=== PATIENT | female | born 1950 | race Caucasian/White ===

== ENCOUNTER 2019-12-01 14:33 | Emergency (ER) | payer OTHER ==
[2019-12-01] MEDS ORDERED: ACETAMINOPHEN-CODEINE 300/30MG TAB ONE (15:47)
[2019-12-01] MEDS ORDERED: ONDANSETRON HCL 4 MG/2 ML VIAL ONE (15:48)
== END 2019-12-01 17:27 | disposition home or self-care (01) ==
LOC: EDH 14:33
DX: S83.92XA Sprain of unspecified site of left knee, initial encounter (principal); M48.54XA Collapsed vertebra, not elsewhere classified, thoracic region, initial encounter for fracture; M54.5 Low back pain; E11.9 Type 2 diabetes mellitus without complications; I10 Essential (primary) hypertension; M81.0 Age-related osteoporosis without current pathological fracture; Z90.710 Acquired absence of both cervix and uterus; Z90.49 Acquired absence of other specified parts of digestive tract; Z87.891 Personal history of nicotine dependence; Z88.8 Allergy status to other drugs, medicaments and biological substances; V49.50XA Passenger injured in collision with unspecified motor vehicles in traffic accident, initial encounter; Y93.89 Activity, other specified; Y92.89 Other specified places as the place of occurrence of the external cause; Y99.8 Other external cause status
CPT/HCPCS: 72131; 73562; 96374; 99284; J2405

== ENCOUNTER → 2021-10-31 | Outpatient (CLI) | payer OTHER, MEDICARE ==
[2021-10-31 11:45] LABS: AMMONIA < 10 umol/L (11-32); CARBON DIOXIDE 30 mmol/L (21-32); CHLORIDE 107 mmol/L (101-111); CREATININE 1.1 mg/dL (0.5-1.5); GLOMERULAR FILTR. RATE CALC 52 mL/min (>60); GLUCOSE,RANDOM 106 mg/dL (70-105); POTASSIUM 5.1 mmol/L (3.5-5.1); SODIUM SERUM 146 mmol/L (136-145); UREA NITROGEN, BLOOD 12 mg/dL (7-18)
[2021-11-02 10:34] LABS: CREATININE,SERUM FOR CRCL 1.1 mg/dL (0.6-1.3)
== END | disposition home or self-care (01) ==
LOC: LAB 09:03
PROVIDERS: ATTEND Internal Medicine
DX: I12.9 Hypertensive chronic kidney disease with stage 1 through stage 4 chronic kidney disease, or unspecified chronic kidney disease (principal); N18.30 Chronic kidney disease, stage 3 unspecified; R25.1 Tremor, unspecified; R35.89 Other polyuria; E04.2 Nontoxic multinodular goiter
CPT/HCPCS: 36415; 80048; 82140; 82575

== ENCOUNTER 2023-09-02 01:35 | Emergency (ER) | payer OTHER, MEDICARE ==
[~2023-09-02] VITALS: Ht 160 cm; Wt 56.7 kg
[2023-09-02 02:38] LABS: BASOPHILS # (AUTO) 0.06 K/uL (0.00-0.20); BASOPHILS % (AUTO) 0.6 % (0.0-5.0); EOSINOPHILS # (AUTO) 0.18 K/uL (0.00-0.70); EOSINOPHILS % (AUTO) 1.9 % (0.0-8.0); HEMATOCRIT 27.8 % (36-48); IMMATURE GRANULOCYTE ABSOLUTE 0.09 K/uL (0-1); LYMPHOCYTES # (AUTO) 2.2 K/uL (1.0-4.8); LYMPHOCYTES % (AUTO) 23.3 % (21.0-51.0); MEAN CORPUSCULAR HEMOGLOBIN 30.1 pg (27.0-33.0); MEAN CORPUSCULAR HGB CONC 33.1 g/dL (32.0-36.0); MEAN CORPUSCULAR VOLUME 90.8 fL (79-99); MONOCYTES # (AUTO) 0.8 K/uL (0.1-1.0); MONOCYTES % (AUTO) 8.8 % (3.0-13.0); NEUTROPHILS # (AUTO) 6.2 K/uL (1.8-7.7); NEUTROPHILS % (AUTO) 64.5 % (40.0-77.0); NUCLEATED RED BLOOD CELLS 0.2 % (0.0-0.19); PLATELET COUNT (AUTO) 583 K/uL (130-400); RED BLOOD CELL COUNT(AUTO) 3.06 MIL/uL (4.00-5.50); RED CELL DISTRIBUTION WIDTH 12.6 % (11.0-15.5); WHITE BLOOD COUNT (AUTO) 9.6 K/uL (4.8-10.8)
[2023-09-02 02:40] LABS: APPEARANCE,URINE CLOUDY (CLEAR); BILIRUBIN,URINE NEGATIVE (NEGATIVE); COLOR,URINE YELLOW (YELLOW); GLUCOSE, URINE (UA) NEGATIVE (NEGATIVE); KETONES,URINE 40 mg/dL (NEGATIVE); LEUKOCYTE ESTERASE ,URINE 250 Leu/uL (NEGATIVE); NITRATE,URINE NEGATIVE (NEGATIVE); OCCULT BLOOD,URINE NEGATIVE (NEGATIVE); PROTEIN,URINE 10 mg/dL (NEGATIVE)
[2023-09-02 02:46] LABS: ADD UA MICROSCOPIC YES
[2023-09-02 02:47] LABS: POTASSIUM 4.4 mmol/L (3.5-5.1)
[2023-09-02 02:49] LABS: MUCUS,URINE RARE LPF (None Seen); WBC,URINE >100 /HPF (0-1)
[2023-09-02 02:52] LABS: ALBUMIN 2.9 g/dL (3.5-5.0); BILIRUBIN,TOTAL 0.5 mg/dL (0.2-1.0); TOTAL PROTEIN, SERUM 6.8 g/dL (6.0-8.3)
[2023-09-02] MEDS: 0.9%NACL 1000ML 2,000 ML IV ONE (03:36)
[2023-09-02] MEDS ORDERED: AMOX1TAB16 PO (04:31)
[2023-09-02] MEDS ORDERED: LEVO-70 PO (04:31)
[2023-09-02] MEDS ORDERED: DOCU-116 PO (04:31)
[2023-09-02] MEDS: CEFTRIAXONE 1G VIAL IVPB ONE (04:36)
[2023-09-02 05:32] VITALS: BP 116/60; PULSE 76; RESP 17; O2SAT 96
== END 2023-09-02 05:56 | disposition home or self-care (01) ==
LOC: EDH 01:35
DX: N39.0 Urinary tract infection, site not specified (principal); E86.0 Dehydration; I10 Essential (primary) hypertension; E11.9 Type 2 diabetes mellitus without complications; Z98.890 Other specified postprocedural states; Z88.8 Allergy status to other drugs, medicaments and biological substances
CPT/HCPCS: 99285; 74176; 96374; 96361; 80053; 85025; 87077; 87088; 87186; 81001; 36415; 51702; J7030; J0696